=== PATIENT | male | born 1990 | race Two or more races ===

== ENCOUNTER 2020-02-16 08:15 | Day surgery (SDC) | payer MEDICARE, MEDICAID, SELFPAY ==
--- NOTE | 2020-02-15 10:07 | P.CONAN_ITS ---
Documented by User: Ashley Figueroa 02/15/20 10:08 HPI - Anesthesia Eval Consult details Narrative: 29yo M for Colonoscopy [facility] Past Medical History Medical History Allergies Anxiety Asthma HTN (hypertension) Hx of urinary frequency Migraine SVT (supraventricular tachycardia) Thyroid disease Surgical History Surgical History Hx of tonsillectomy Social History Social History Smoking Status: Smoker, status unknown Use of substances other than those prescribed or required for medical reasons: No Have you been hit, kicked, punched, or otherwise hurt by someone within the past year? If so, by whom?: No Advance Directives: No Advance Directives Information Provided: No Meds Allergies Allergy/AdvReac Type Severity Reaction Status Date / Time No Known Allergies Allergy Verified 01/22/20 10:51 Home Medications Medication Instructions Recorded Confirmed Type albuterol sulfate [Ventolin HFA] 2 puff PO Q4H PRN 01/22/20 01/22/20 History alprazolam 1 tab PO BID 01/22/20 01/22/20 History cetirizine 1 tab PO BID 01/22/20 01/22/20 History cholecalciferol (vitamin D3) 1 tab PO DAILY 01/22/20 01/22/20 History citalopram 1 tab PO DAILY 01/22/20 01/22/20 History ibuprofen 01/22/20 01/22/20 History lactulose 15 ml PO DAILY 01/22/20 01/22/20 History levothyroxine 1 tab PO QAM 01/22/20 01/22/20 History lisinopril 1 tab PO DAILY 01/22/20 01/22/20 History montelukast 1 tab PO BEDTIME 01/22/20 01/22/20 History ywnezbzk-xbk-oztcu-vit K-lycop tab PO 01/22/20 History [One-A-Day Men's Multivitamin] oxybutynin chloride 1 tab PO DAILY 01/22/20 01/22/20 History verapamil 1 tab PO DAILY 01/22/20 01/22/20 History Exam Exam Date and Time: February 15, 2020 1007 Pertinent Lab Results Pertinent Lab Results: Laboratory Tests 11/25/19 11/25/19 09:37 09:37 WBC 8.7 Hgb 14.6 Hct 43.4 Plt Count 275 Sodium 140 Potassium 4.0 Chloride 104 BUN 14 Creatinine 1.12 Assessment and Plan Assessment Anesthesia Assessment: Chart Reviewed Documented by User: Bobby Tam MD 02/16/20 08:48 PMFSH Past Medical History Medical History Allergies Anxiety Asthma HTN (hypertension) Hx of urinary frequency Migraine SVT (supraventricular tachycardia) Thyroid disease Surgical History Surgical History Hx of tonsillectomy Social History Social History Smoking Status: Smoker, status unknown Use of substances other than those prescribed or required for medical reasons: No Have you been hit, kicked, punched, or otherwise hurt by someone within the past year? If so, by whom?: No Advance Directives: No Advance Directives Information Provided: No Meds Allergies Allergy/AdvReac Type Severity Reaction Status Date / Time No Known Allergies Allergy Verified 01/22/20 10:51 Home Medications Medication Instructions Recorded Confirmed Type albuterol sulfate [Ventolin HFA] 2 puff PO Q4H PRN 01/22/20 01/22/20 History alprazolam 1 tab PO BID 01/22/20 01/22/20 History cetirizine 1 tab PO BID 01/22/20 01/22/20 History cholecalciferol (vitamin D3) 1 tab PO DAILY 01/22/20 01/22/20 History citalopram 1 tab PO DAILY 01/22/20 01/22/20 History ibuprofen 01/22/20 01/22/20 History lactulose 15 ml PO DAILY 01/22/20 01/22/20 History levothyroxine 1 tab PO QAM 01/22/20 01/22/20 History lisinopril 1 tab PO DAILY 01/22/20 01/22/20 History montelukast 1 tab PO BEDTIME 01/22/20 01/22/20 History lgclxbpg-bsj-uzmzv-vit K-lycop tab PO 01/22/20 History [One-A-Day Men's Multivitamin] oxybutynin chloride 1 tab PO DAILY 01/22/20 01/22/20 History verapamil 1 tab PO DAILY 01/22/20 01/22/20 History Exam Airway Mallampati Class: II TM Dist: >3cm Neck ROM: Full Loose/Missing/Broken Teeth: No Heart: rrr, tachycardia Lungs: nl Other: ao Assessment and Plan Assessment Anesthesia Assessment: Anesthesia Plan Discussed and Chart Reviewed Final Anesthetic Review NPO: Yes ASA Class: III Final Preanesthetic Review: No Changes in Pt Med Stat, Meds/Allgs Chart Reviewed, Consent Obtained/Reviewed and Anes Risks/Benef Reviewed Patient Risk: High Procedure Risk: Low Anesthetic Plan Anesthetic Plan: MAC: Disposition: Standard PACU
[2020-02-15 15:00] VITALS: BMI 43.6
[2020-02-16 08:29] VITALS: BP 139/85; PULSE 116; RESP 18; TEMP 36.2; O2SAT 96
[2020-02-16] MEDS: Lactated Ringers 1,000 ML 100 ML IVCONT (08:39)
--- NOTE | 2020-02-16 08:51 | MHC.SHP ---
Pre-Procedural Eval Section B Chief Complaint: Change in bowel habits Details of Present Illness: see h&P no changes Relevant Family History (Specify if Yes): No Relevant Social History: None Present Medications: None Medical History: No relevant PMH History of Previous Operations: No relevant previous surgery Allergies: Allergies Allergy/AdvReac Type Severity Reaction Status Date / Time No Known Allergies Allergy Verified 01/22/20 10:51 Review of Systems Sugical H&P ROS: Negative: Constitution, Cardiovascular, Respiratory, Neurological, Psychiatric, Hem-Onc, Allergic/Immunologic, Gastrointestinal, Genitourinary, Musculoskeletal, Integumentary, Endocrine and Eyes/Ears/Nose/Throat Exam Surgical H&P Exam: Normal: HEENT, Normal: Heart, Normal: Lungs, Normal: Extremities, Normal: Abdomen, Normal: Skin and Normal: Neurological Plan Diagnosis/Plan: Unchanged Patient has been examined and remains a candidate for the planned procedure
[2020-02-16 09:20] VITALS: BP 126/80; PULSE 94; RESP 15; TEMP 36.3; O2SAT 98
--- NOTE | 2020-02-16 09:23 | PM.OP ---
Brief Operative Note Date of Service: 02/16/20 Pre-op diagnosis: change in bowels Post-op diagnosis: same (normal) Procedure: colonoscopy Surgeon: James Valladares Anesthesia: MAC Estimated blood loss (mL): 2 Pathology: other (sigmoid biopsies) Condition: stable Disposition: PACU
[2020-02-16 09:35] VITALS: BP 112/82; PULSE 86; RESP 16; TEMP 36.3; O2SAT 97
--- NOTE | 2020-02-16 09:42 | OP_ITS ---
SURGEON: James Valladares MD INDICATIONS: Change in bowel habits. PREOPERATIVE DIAGNOSIS: POSTOPERATIVE DIAGNOSIS: PROCEDURE PERFORMED: Colonoscopy to the terminal ileum with biopsy. ESTIMATED BLOOD LOSS: COMPLICATIONS: ANESTHESIA: Monitored anesthesia care. ASSISTANTS: SPECIMENS: DESCRIPTION OF PROCEDURE: History and physical performed. The risks and benefits of the procedure were explained to the patient. Informed consent was obtained. The patient was placed in the left lateral decubitus position. The Olympus video colonoscope was introduced into the rectum. After digital rectal exam was performed, it was found to be normal. The scope was advanced to the cecum without difficulty. The cecum was identified by transillumination, palpation, and identification of ileocecal valve. Examination was performed. The scope was removed. He tolerated the procedure well, was returned to recovery area in stable condition. FINDINGS: The terminal ileum consistent with nodular lymphoid hyperplasia. There was no evidence of Crohn disease. The visualized colonic mucosa was within normal limits. The quality of the prep was good. No polyps were identified. Retroflexed examination showed small internal hemorrhoids. Random sigmoid biopsies were obtained. IMPRESSION: Normal colonoscopy. RECOMMENDATION: 1. Follow up as needed. 2. Repeat colonoscopy could be considered by age 50 for colorectal cancer screening. MD ROGER Reed/RUBEN / [id number]
--- NOTE | 2020-02-16 13:26 | HO.POSTANES ---
Post Anesthesia Evaluation Post Anesthesia Evaluation Vital Signs: Vital Signs Temp Pulse Resp BP Pulse Ox 02/16/20 09:35 97.3 F 86 16 112/82 97 02/16/20 09:20 97.3 F 94 15 126/80 98 02/16/20 08:29 97.1 F 116 H 18 139/85 96 Anesthesia: Monitored Mental Status: Awake Pain Control: Satisfactory Nausea/Vomiting: None Hydration: Adequate Anesthesia-Related Issues: No Anes. Related Issues
== END 2020-02-16 10:16 | disposition home or self-care (01) ==
PROVIDERS: PCP Internal Medicine; Visit Provider Internal Medicine Gastroenterology
PROC: 0DJD8ZZ Inspection of Lower Intestinal Tract, Via Natural or Artificial Opening Endoscopic (ICD-10-PCS; CPT 45378; principal; 2020-02-16 09:00)
DX: R19.4 Change in bowel habit (principal); I10 Essential (primary) hypertension; Z79.899 Other long term (current) drug therapy
CPT/HCPCS: 45380; 88305

== ENCOUNTER → 2021-03-09 14:36 | Outpatient (REF) | payer MEDICARE, MEDICAID, SELFPAY ==
--- NOTE | 2021-03-09 14:47 | ECG_ITS ---
Test Reason : I47.1 Blood Pressure : / mmHG Vent. Rate : 069 BPM Atrial Rate : 069 BPM P-R Int : 154 ms QRS Dur : 100 ms QT Int : 352 ms P-R-T Axes : 047 -20 021 degrees QTc Int : 377 ms Normal sinus rhythm with sinus arrhythmia Incomplete right bundle branch block Minimal voltage criteria for LVH, may be normal variant ( R in aVL ) Borderline ECG No previous ECGs available Referred By: Racheal Manjarrez Electronically Signed By:BRYCE BAEZ MD
== END ==
LOC: HO.CARD 14:36
PROVIDERS: PCP Internal Medicine; Visit Provider Internal Medicine
DX: I47.1 Supraventricular tachycardia (principal)
CPT/HCPCS: 93005

== ENCOUNTER → 2021-03-20 11:19 | Outpatient (REF) | payer MEDICARE, SELFPAY ==
--- NOTE | 2021-03-20 11:27 | HM_ITS ---
Total monitoring time 6 days in 23 hours. Underlying rhythm is sinus. Average 77/Min. No atrial fibrillation or flutter or AV blocks or pauses. Rare ventricular ectopy with minimal burden. NSVT noted, 2 episodes, longest 11 beats, rate 91/min. No clear patient symptoms documented. MTDD
== END ==
LOC: HO.CARD 11:19
PROVIDERS: PCP Internal Medicine; Visit Provider Internal Medicine
DX: I47.1 Supraventricular tachycardia (principal)
CPT/HCPCS: 93242

== ENCOUNTER 2021-09-19 10:58 | Outpatient (REF) | payer MEDICARE, SELFPAY ==
[2021-09-19 13:33] LABS: MANUAL DIFF FLAG NO
[2021-09-19 13:49] LABS: Basophils Absolute Auto 0.1 X10*3/uL (0.0-0.2); Basophils Percent Auto 1.3 % (0-2); Eosinophils Absolute Auto 0.2 X10*3/uL (0.0-0.4); Eosinophils Percent Auto 2.5 % (0-4); Hematocrit 44.3 % (42.0-52.0); Hemoglobin 14.3 g/dl (14.0-18.0); Imm Gran Abs Auto 0.02 X10*3/uL (0.00-0.03); Imm Gran Pct Auto 0.3 % (0.0-0.4); Lymphocytes Absolute Auto 2.7 X10*3/uL (1.2-4.9); Lymphocytes Percent Auto 40.1 % (20-40); Mean Corpuscular HGB Conc 32.3 g/dl (31.0-36.0); Mean Corpuscular Hemoglobin 27.6 pg (27.0-33.0); Mean Corpuscular Volume 85.4 fL (80.0-98.0); Mean Platelet Volume 12.6 fL (9.4-12.4); Monocytes Absolute Auto 0.5 X10*3/uL (0.1-1.2); Monocytes Percent Auto 7.2 % (2-11); Neutrophils Absolute Auto 3.3 x10*3/uL (2.0-8.3); Neutrophils Percent Auto 48.6 % (45-73); Platelet Count 249 X10*3/uL (160-400); Red Blood Count 5.19 X10*6/uL (4.60-5.80); Red Cell Distribution Width 12.1 % (11.0-16.0); White Blood Count 6.8 X10*3/uL (4.8-10.8)
[2021-09-19 14:13] LABS: Alanine Aminotransferase 29 U/L (0-40); Albumin Level 4.8 g/dL (3.5-5.0); Alkaline Phosphatase 52 U/L (39-117); Anion Gap 13 (12-20); Aspartate Amino Transferase 22 U/L (5-37); Bilirubin Total 0.5 mg/dL (0.0-1.0); Blood Urea Nitrogen 20 mg/dL (9-16); Calcium 9.9 mg/dL (8.4-10.2); Carbon Dioxide 27 mmol/L (22-29); Chloride 106 mmol/L (96-108); Cholesterol 200 mg/dL; Estimated Glomerular Filt Rate > 60; Glucose Fasting 105 mg/dL (60-99); HDL Cholesterol 39 mg/dL; LDL Cholesterol Calculated 111 mg/dl; Potassium 4.7 mmol/L (3.3-5.1); Sodium 141 mmol/L (135-145); Total Protein 7.1 g/dL (6.5-8.0); Triglycerides 252 mg/dL
[2021-09-19 14:38] LABS: Free T4 (Free Thyroxine) 1.09 ng/dL (0.71-1.85); Thyroid Stimulating Hormone 5.37 uIU/mL (0.32-4.0); Vitamin D 25-OH Total 20.1 ng/mL (>30)
== END 2021-09-19 10:59 | disposition home or self-care (01) ==
LOC: HO.10HDL 10:58
PROVIDERS: Visit Provider Internal Medicine
DX: E78.5 Hyperlipidemia, unspecified (principal); I10 Essential (primary) hypertension; T78.40XA Allergy, unspecified, initial encounter; E55.9 Vitamin D deficiency, unspecified; E07.9 Disorder of thyroid, unspecified
CPT/HCPCS: 36415; 80053; 80061; 82306; 84439; 84443; 85025

== ENCOUNTER 2022-05-24 15:11 | Outpatient (REF) | payer MEDICARE, SELFPAY ==
--- NOTE | ~2022-05-24 | XR_ITS ---
EXAMINATION: XR SHOULDER, RIGHT CLINICAL INFORMATION: Reason for Exam M25.511 - Pain in right shoulder COMPARISON: None TECHNIQUE: Four views of the shoulder. FINDINGS: No acute fracture or dislocation. Joint spaces are maintained without significant degenerative change. Soft tissues are unremarkable. XR/XR shoulder RT min 2V IMPRESSION: * No acute osseous abnormality.
== END 2022-05-24 15:12 | disposition home or self-care (01) ==
LOC: HO.XRAY 15:11
PROVIDERS: PCP Internal Medicine; Visit Provider Internal Medicine
DX: M25.511 Pain in right shoulder (principal)
CPT/HCPCS: 73030

== ENCOUNTER 2023-09-16 15:33 | Outpatient (AMB) | payer MEDICARE, SELFPAY ==
--- NOTE | 2023-09-16 15:43 | MHC.PC.OV ---
Vital Signs 09/16/23 15:44 Height 5 ft 11 in Weight 313 lb BMI 43.6 BP 130/90 H Blood Pressure Location Lt brachial Position Sitting Intake Visit Reasons: migraine,thyroid [employer] Required: No Accompanied by: Self / Same As Patient Allergies No Known Allergies Allergy (Verified 09/16/23 15:54) Medication List - Last Reconciled 09/16/23 by Racheal Manjarrez MD albuterol sulfate 90 mcg/actuation (Ventolin HFA) 2 puffs PO Q4H PRN 30 days alprazolam 2 mg PO BID PRN 28 days blood pressure monitor As directed cetirizine 10 mg PO BID 30 days cholecalciferol (vitamin D3) 2,000 units PO DAILY 90 days citalopram 40 mg PO DAILY 90 days fluticasone propionate 50 mcg/actuation (Children's Flonase Allergy Relief) 1 spray intranasal DAILY 30 days [ibuprofen ] levothyroxine 75 mcg PO DAILY 90 days lisinopril 10 mg PO DAILY 90 days montelukast 10 mg PO QPM 90 days ficqahyl-cfr-mcbta-vit K-lycop 400-20-300 mcg (One-A-Day Men's Multivitamin) tabs PO ondansetron 8 mg PO Q12H PRN 7 days oxybutynin chloride ER 10 mg PO DAILY 90 days rizatriptan 10 mg PO Q2-4H PRN 30 days verapamil ER 180 mg PO DAILY 90 days Tobacco use date assessed: 09/16/23 Dental Screening Dental Screen Date: 09/16/23 Did you have a dental visit in the last 12 months?: No Did you have a dental problem in the last 6 months where you did not have access to dental care?: No Was dental information given to patient?: Patient has dentist HPI HPI Comments History of Present Illness Details This is a 33-year-old male with supraventricular tachycardia, morbid obesity and mild major depression that comes today for his physical exam. No acute complaints. Tachycardia stable with verapamil. Depression well control with citalopram and follow-up visit requested. He is morbidly obese with a BMI of 43.7 and was advised to do diet and exercise to reach BMI goal less than 30. [facility] Medical History (Updated 09/16/23 @ 16:21 by Racheal Manjarrez MD) Left knee pain Thyroid disease Migraine Hx of urinary frequency Allergies Anxiety Asthma HTN (hypertension) SVT (supraventricular tachycardia) Surgical History Hx of tonsillectomy Family History Father Melanoma Mother Asthma Hypertension Maternal Grandmother Hypertension Maternal Grandfather Diabetes Paternal Grandmother Family history of thyroid problem Maternal Aunt Cancer Paternal Uncle No problems noted. Family/Other Mental health disorder Social History Housing: House Alcohol intake: never Patient Tobacco Use Status: Never used Tobacco e-Cigarette/Vaping Use: Never Used Second Hand Smoke Exposure: No service: No Current occupational status: disabled Cognitive needs: No Hearing needs: No Vision needs: Yes Questionnaire PHQ-9 Over the last 2 weeks, how often have you been bothered by any of the following problems? 1. Little interest or pleasure in doing things: several days 2. Feeling down, depressed, or hopeless: several days 3. Trouble falling or staying asleep, or sleeping too much: several days 4. Feeling tired or having little energy: several days 5. Poor appetite or overeating: several days 6. Feeling bad about yourself - or that you are a failure or have let yourself or your family down: not at all 7. Trouble concentrating on things, such as reading the newspaper or watching television: not at all 8. Moving or speaking so slowly that other people could have noticed. Or the opposite - being so fidgety or restless that you have been moving around a lot more than usual: not at all 9. Thoughts that you would be better off or of hurting yourself in some way: not at all Total score: 5 Depression Screening Interpretation: Positive Depression Screening Follow-up: Existing condition and Follow-up Visit Requested Depression Screening Done: Yes 71722 - PHQ-9 Billing: Yes Source: Developed by Drs. Claudy Fisher, Gemini Jovel, Silverio Knight and colleagues, with an educational charles from [employer]. Thrive Questionnaire Date Thrive assessed: 09/16/23 I am a: Patient What is your living situation today?: I have a steady place to live Within the past 12 months, did the food you bought not last and you didn't have the money to get more?: Never true Within the past 12 months, did you worry whether your food would run out before you got money to buy more?: Never true Do you have trouble paying for medicines?: No Do you have trouble getting transportation to medical appointments?: No Do you have trouble paying your heating and electricity bill?: No Do you have trouble taking care of your child, family member or friend?: No Do you have trouble with day-to-day activities such as bathing, preparing meals, shopping, managing finances, etc.?: No Are you currently unemployed and looking for a job?: No Are you interested in more education?: No Please select the resources that you would like help with: None Currently or been in a relationship where the following occur: no concerns reported THRIVE Score: 0 AUDIT C Alcohol Use Questionnaire (AUDIT-C) 1. How often do you have a drink containing alcohol?: Never Total Score: 0 DACIA-7 AMB Questionnaire DACIA-7 Date DACIA - 7 assessed: 09/16/23 Feeling nervous, anxious, or on edge: 1 = Several days Not being able to stop or control worryin = Not at all Worrying too much about different things: 0 = Not at all Trouble relaxin = Several days Being so restless that it is hard to sit still: 0 = Not at all Becoming easily annoyed or irritable: 0 = Not at all Feeling afraid as if something awful might happen: 1 = Several days Total DACIA-7 score (0-4 normal; 5-9 mild; 10-14 moderate; 15-21 severe): 3 Source: Developed by Drs. Claudy Fisher, Gemini Jovel, Silverio Knight and colleagues, with an educational charles from [employer]. DACIA-7 Assessment Billing DACIA-7 Assessment Tool: DACIA-7 Assessment 66622 Review of Systems Const All systems reviewed & are unremarkable except as noted in HPI and below Card Denies chest pain at rest, Denies chest pain with activity, Denies edema, Denies irregular heart rhythm, Denies claudication, Denies dyspnea, Denies dyspnea on exertion, Denies orthopnea, Denies paroxysmal nocturnal dyspnea and Denies slow heart rate Resp Denies cough, Denies dyspnea and Denies dyspnea on exertion GI Denies abdominal pain, Denies change in bowel habits, Denies excessive flatus, Denies nausea and Denies vomiting Neuro Denies lack of coordination Physical exam (Primary Care) Vital Signs: Last Vital Signs BP 130/90 H 09/16/23 15:44 BMI result Body Mass Index 43.6 Tobacco/Smoking Status: Tobacco use Status Tobacco use date assessed 09/16/23 09/16/23 15:50 Patient Tobacco Use Status Never used Tobacco 09/16/23 15:44 e-Cigarette/Vaping Use Never Used 09/16/23 15:44 PHQ-9: PHQ-9 Score PHQ-9: Total score 5 09/16/23 15:58 Depression Screening Interpretation: Positive Depression Screening Follow-up: Existing condition and Follow-up Visit Requested Thrive Assessment: Date of Thrive Assessment Date Thrive assessed 09/16/23 09/16/23 15:50 Currently or been in a relationship where the following occur: no concerns reported Const Orientation/consciousness: patient oriented x3 [facility] Head: Yes normal to inspection, Yes normocephalic and Yes atraumatic Ears: external ears normal Eyes General: appearance normal, both eyes and all related structures Eyelids: Yes eyelids normal Conjunctivae: conjunctivae normal Neck Neck: Yes normal visual inspection and Yes supple Resp Effort & Inspection: normal respiratory effort Auscultation: clear to auscultation bilaterally Cardio Jugular venous distension: no JVD Rate: regular rate Rhythm: regular rhythm Heart sounds: S1 normal heart sound present and S2 normal heart sound present GI Inspection: Yes normal to inspection Palpation (GI): Soft to palpation and nontender Auscultation: normal bowel sounds Skin General skin exam: no rashes or lesions noted Neuro General: patient oriented x3 and no focal motor deficits Extrem General: Yes full ROM Psych Appearance: grossly normal Assessment and Plan Assessment & Plan (1) Physical exam: Code(s): Z00.00 - Encounter for general adult medical examination without abnormal findings Plan: Repeat in a year. (2) Mild major depression: Code(s): F32.0 - Major depressive disorder, single episode, mild Plan: Continue citalopram. Follow-up visit requested. (3) Morbid obesity: Code(s): E66.01 - Morbid (severe) obesity due to excess calories Plan: Start diet and exercise. BMI goal is less than 30. (4) SVT (supraventricular tachycardia): Code(s): I47.1 - Supraventricular tachycardia Plan: Continue verapamil. Orders: Orders Thyroid Stimulating Hormone Today E03.9 - Hypothyroidism, unspecified Lipid Panel Today E66.01 - Morbid (severe) obesity due to excess calories Vitamin D 25-OH Total Today E55.9 - Vitamin D deficiency, unspecified Comprehensive [place]. Panel Fast Today E66.01 - Morbid (severe) obesity due to excess calories Medications: Refilled alprazolam 2 mg PO BID PRN 56 tabs 0RF anxiety 28 days ondansetron 8 mg PO Q12H PRN 14 tabs 0RF nausea and vomiting 7 days rizatriptan do not exceed 3 doses per 24 hrs 10 mg PO Q2-4H PRN 5 tabs 0RF migraine headache 30 days lisinopril 10 mg PO DAILY 90 tabs 1RF 90 days cholecalciferol (vitamin D3) 2,000 units PO DAILY 90 tabs 3RF 90 days verapamil ER 180 mg PO DAILY 90 caps 0RF 90 days I47.1 - Supraventricular tachycardia citalopram 40 mg PO DAILY 90 tabs 1RF 90 days cetirizine 10 mg PO BID 60 tabs 6RF 30 days Coding Level of Care Code Est Pt Prev Care [id number]([id number]) Diagnoses Physical exam Z00.00 Mild major depression F32.0 Morbid obesity E66.01 SVT (supraventricular tachycardia) I47.1 Additional Codes DACIA-7 Assessment Billing - DACIA-7 Assessment Tool: DACIA-7 Assessment 34183 ([id number]) Time Spent (min) 32
[2023-09-16 15:44] VITALS: BP 130/90; BMI 43.6
== END 2023-09-16 16:09 | disposition home or self-care (01) ==
PROVIDERS: PCP Internal Medicine; Visit Provider Internal Medicine
DX: Z00.00 Encounter for general adult medical examination without abnormal findings (principal); I47.10 Supraventricular tachycardia, unspecified; F33.0 Major depressive disorder, recurrent, mild; E55.9 Vitamin D deficiency, unspecified
CPT/HCPCS: 96127; 99395

== ENCOUNTER 2024-03-23 14:50 | Outpatient (AMB) | payer MEDICARE, SELFPAY ==
[2024-03-23 14:51] VITALS: BP 140/90; BMI 42.4
--- NOTE | 2024-03-23 14:51 | MHC.PC.OV ---
Vital Signs 03/23/24 14:51 Height 5 ft 11 in Weight 304 lb BMI 42.4 BP 140/90 H Blood Pressure Location Lt brachial Position Sitting Intake Visit Reasons: thyroid, depression, weight Operating Room Specialist Required: No Accompanied by: Mother Allergies No Known Allergies Allergy (Verified 03/23/24 15:03) Medication List - Last Reconciled 03/23/24 by Racheal Manjarrez MD acetaminophen-codeine 300-15 mg 1 tab PO Q8H PRN 30 days albuterol sulfate 90 mcg/actuation (Ventolin HFA) 2 puffs PO Q4H PRN 30 days alprazolam 2 mg PO BID PRN 28 days blood pressure monitor As directed cetirizine 10 mg PO BID 30 days cholecalciferol (vitamin D3) 2,000 units PO DAILY 90 days citalopram 40 mg PO DAILY 90 days fluticasone propionate 50 mcg/actuation (Children's Flonase Allergy Relief) 1 spray intranasal DAILY 30 days [ibuprofen ] levothyroxine 75 mcg PO DAILY 90 days lisinopril 10 mg PO DAILY 90 days montelukast 10 mg PO QPM 90 days [id number]-uxy-ufxhl-vit K-lycop 400-20-300 mcg (One-A-Day Men's Multivitamin) tabs PO nebulizers (AeroEclipse II Nebulizer) As directed ondansetron 8 mg PO Q12H PRN 7 days oxybutynin chloride ER 10 mg PO DAILY 90 days rizatriptan 10 mg PO Q2-4H PRN 30 days verapamil ER 180 mg PO DAILY 90 days Tobacco use date assessed: 09/16/23 Dental Screening Dental Screen Date: 09/16/23 HPI HPI Comments History of Present Illness Details The patient is a 33-year-old male presenting with migraines and hand pain. The migraines have been occurring daily and are described as very strong. These episodes seem to worsen with stress and upper respiratory infections, which the patient recently experienced, characterized by persistent coughing. The patient reports that his migraines tend to exacerbate when he is sick. He has been prescribed Verapamil to manage both migraines and blood pressure. Additionally, the patient reports hand pain, particularly affecting the left second finger. He notes some improvement in the pain but remains uncertain about its progression. The patient has a history of hypercholesterolemia, which was noted to be slightly elevated. This condition is monitored without current pharmacological intervention, with plans to re-evaluate in September. Furthermore, the patient experiences anxiety for which Alprazolam is taken as needed. He reports a recent illness with an upper respiratory infection leading to more severe headaches during that period. [facility] Medical History (Updated 03/23/24 @ 20:41 by Racheal Manjarrez MD) Left knee pain Thyroid disease Migraine Hx of urinary frequency Allergies Anxiety Asthma HTN (hypertension) SVT (supraventricular tachycardia) Surgical History Hx of tonsillectomy Family History Father Melanoma Mother Asthma Hypertension Maternal Grandmother Hypertension Maternal Grandfather Diabetes Paternal Grandmother Family history of thyroid problem Maternal Aunt Cancer Paternal Uncle No problems noted. Family/Other Mental health disorder Social History Housing: House Alcohol intake: never Patient Tobacco Use Status: Never used Tobacco e-Cigarette/Vaping Use: Never Used Second Hand Smoke Exposure: No service: No Current occupational status: disabled Cognitive needs: No Hearing needs: No Vision needs: Yes Questionnaire Thrive Questionnaire Date Thrive assessed: 09/16/23 DACIA-7 AMB Questionnaire DACIA-7 Date DACIA - 7 assessed: 09/16/23 Source: Developed by Drs. Claudy Fisher, Gemini Jovel, Silverio Knight and colleagues, with an educational charles from [employer] Review of Systems Const Details: - Respiratory: Reports frequent coughing. - Neurological: Reports ocasional migraines. Physical exam (Primary Care) Vital Signs: Last Vital Signs BP 140/90 H 03/23/24 14:51 BMI result Body Mass Index 42.4 BMI Assessment/Plan discussion: High BMI High, discussed plan: lifestyle, weight reduction, dietary and physical activity Tobacco/Smoking Status: Tobacco use Status Tobacco use date assessed 09/16/23 03/23/24 15:00 Patient Tobacco Use Status Never used Tobacco 03/23/24 15:00 e-Cigarette/Vaping Use Never Used 03/23/24 15:00 Thrive Assessment: Date of Thrive Assessment Date Thrive assessed 09/16/23 03/23/24 15:00 Const Other: General: No confusion Orientation/Consciousness: Patient oriented x3 and No confusion Respiratory: Normal respiratory effort, clear to auscultation bilaterally, no wheezing Cardiovascular: No jugular venous distension, regular rate, regular rhythm, S1 normal heart sound present and S2 normal heart sound present Neurology: Patient oriented x3, no focal motor deficits and No confusion Extremities: Full ROM Office Procedures Flu Questionnaire Does the patient have a severe egg allergy?: No Immunizations Fluarix Triv 6569-2630 (PF) 45 mcg (15 mcg x 3)/0.5 mL IM syringe Performing Provider: Racheal Manjarrez MD [facility] Documented (not given) by: MANOLO Dobson on 03/23/24 15:21 Reason Not Given: Patient Refused Coding Level of Care Code Est Pt Level 4 (22338) Complex EM visit Add On G2211 Diagnoses Mild major depression F32.0 Morbid obesity E66.01 Primary hypertension I10 Hypertension type: primary hypertension Migraine G43.909 Migraine type: chronic migraine (15 or more days per month) without aura Thyroid disease E07.9 Time Spent (min) 24 Assessment & Plan Assessment & Plan (1) Mild major depression: Code(s): F32.0 - Major depressive disorder, single episode, mild Category: Medical (2) Morbid obesity: Code(s): E66.01 - Morbid (severe) obesity due to excess calories Category: Medical (3) HTN (hypertension): Code(s): I10 - Essential (primary) hypertension Category: Medical Qualifiers: Hypertension type: primary hypertension Qualified Code(s): I10 - Essential (primary) hypertension (4) Migraine: Code(s): G43.909 - Migraine, unspecified, not intractable, without status migrainosus Category: Medical Qualifiers: Migraine type: chronic migraine (15 or more days per month) without aura (5) Thyroid disease: Code(s): E07.9 - Disorder of thyroid, unspecified Category: Medical Plan - Continue monitoring of Verapamil efficacy for migraine and blood pressure management. - Re-evaluate cholesterol levels in September. No medication required currently. - Encourage follow-up if migraines persist or worsen despite current treatment. - Monitor hand pain; consider further evaluation if no improvement. Patient was informed and verbally consented to the use of an ambient scribe for clinic note documentation during this visit. During the visit, I discussed with the patient the importance of continuing Verapamil to manage his migraines and blood pressure. We acknowledged the improvement of hand pain and agreed to monitor symptoms. We also reviewed his cholesterol levels; medication is not needed at this point, but re-evaluation in September is planned. The discussion included advising him of the benefits and risks of his current prescription for anxiety, and I emphasized the importance of maintaining routine follow-ups to manage these conditions effectively. I ensured the patient understood that Verapamil should help with both migraines and blood pressure control, and I invited him to communicate any changes in symptoms. Orders: Orders Lipid Panel 6 Months E78.5 - Hyperlipidemia, unspecified Comprehensive [place]. Panel Fast 6 Months I47.1 - Supraventricular tachycardia Influenza 4750-5330 Immunization Today Z23 - Encounter for immunization Thyroid Stimulating Hormone 6 Months E03.9 - Hypothyroidism, unspecified Medications: New oxybutynin chloride ER 15 mg PO DAILY 90 tabs 1RF 90 days Refilled alprazolam 2 mg PO BID PRN 56 tabs 0RF anxiety 28 days verapamil ER 180 mg PO DAILY 90 caps 0RF 90 days I47.1 - Supraventricular tachycardia levothyroxine 75 mcg PO DAILY 90 days 90 tabs 1RF E03.9 - Hypothyroidism, unspecified Patient Instructions: - Continue taking prescribed medications as directed. - Maintain ongoing observation of migraine and hand pain symptoms. - Contact the office if migraines or other symptoms worsen. - Prepare for cholesterol re-evaluation in September. - Follow routine health maintenance guidelines.
== END 2024-03-23 15:14 | disposition home or self-care (01) ==
PROVIDERS: PCP Internal Medicine; Visit Provider Internal Medicine
DX: F32.0 Major depressive disorder, single episode, mild (principal); E66.01 Morbid (severe) obesity due to excess calories; Z68.41 Body mass index [BMI] 40.0-44.9, adult; I10 Essential (primary) hypertension; G43.909 Migraine, unspecified, not intractable, without status migrainosus; E07.9 Disorder of thyroid, unspecified

== ENCOUNTER → 2024-03-23 14:50 | Outpatient (BNVA) | payer MEDICARE, SELFPAY | PROVIDERS: PCP Internal Medicine; Visit Provider Internal Medicine | DX: F32.0 Major depressive disorder, single episode, mild (principal); E66.01 Morbid (severe) obesity due to excess calories; Z68.41 Body mass index [BMI] 40.0-44.9, adult; I10 Essential (primary) hypertension; G43.909 Migraine, unspecified, not intractable, without status migrainosus; E07.9 Disorder of thyroid, unspecified; Z71.3 Dietary counseling and surveillance | CPT/HCPCS: 99212 ==

== ENCOUNTER → 2024-04-29 19:39 | Outpatient (BNV) | payer MEDICARE, SELFPAY | PROVIDERS: PCP Internal Medicine; Visit Provider Radiology Diagnostic Radiology | DX: R59.0 Localized enlarged lymph nodes (principal) | CPT/HCPCS: 70551 ==

== ENCOUNTER 2024-05-18 15:42 | Outpatient (REF) | payer MEDICARE, SELFPAY ==
--- NOTE | ~2024-05-18 | US_ITS ---
CLINICAL HISTORY: R59.0 - Localized enlarged lymph nodes Soft tissue ultrasound of the bilateral neck Comparison: None FINDINGS: Images were obtained in the area of clinical concern. In this region, the soft tissue shows multiple lymph nodes with fatty hilum. The largest one is a left level 4 lymph node 1.9 x 0.5 x 0.7 cm in size. IMPRESSION: Nonspecific bilateral cervical lymph nodes. Clinical follow-up and correlation are recommended. This document has been electronically signed by: Maryann Butts MD on 05/19/2024 16:13:36
--- OUTSIDE RECORDS SUMMARY | 2024-05-18 17:59 | XMS_ITS ---
Author Name [facility] Organization Unknown Problems Problem Status Onset Date Problem Type Date of Resoluti on Source Migraine without status migrainosus, not intractable, unspecified migraine type active EncounterDiagnosisAct [facility]
--- OUTSIDE RECORDS SUMMARY | 2024-05-18 17:59 | XMS_ITS | Clinical Summary ---
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 Name Role Phone Unavailable Primary Care Provider Unavailabl e Social History Tobacco Use Types Packs/Day Years Used Date Smoking Tobacco: Never Assessed Sex and Gender Information Value Date Recorded Sex Assigned at Not on file Gender Identity Not on file Sexual Orientation Not on file Plan of Treatment Health Maintenance Due Date Last Done Comments Hepatitis C Virus Screening 1989 HIV Screening 2002 DTaP/Tdap/Td Vaccines (1 - Tdap) 2008 Hepatitis B Vaccines (1 of 3 - 19+ 3-dose series) 2008 Influenza Vaccine 10/24/2023 COVID-19 Vaccine ( - 2023-2 5 season) 2023 HPV Vaccines Aged Out No longer eligi ble based on patient's age to complete this topic Pneumococcal Vaccine: Pediat christiano (0-5 Years) and At-Risk Patients (6 to 49 Years) Aged Out No longer eligible b ased on patient's age to complete this topic
--- OUTSIDE RECORDS SUMMARY | 2024-05-18 17:59 | XMS_ITS | Patient Health Record ---
Author Organization [facility] Address [address] [place] [id number] Care Team Providers Care Finish Molder Name Role Phone Racheal Nelson Primary Care Provider Unavailab James Stevenson Jr Unavailable [phone] REASON FOR REFERRAL No Information MEDICATIONS Medication SIG (Take, Route, Frequency, Duration) Notes Start Date End Date Status Lactulose Active Verapamil HCl Active Ibuprofen Active Lisinopril Active One A Day Mens VitaCraves Active Vitamin D (Ergocalciferol) Active Levothyroxine Sodium Active Cetirizine HCl Activ e MiraLax (colon prep) 8.3 ounce (238) grams mixed with Gatorade or Crystal Light orally begin at 5:00 p.m. the day before the procedure for 1 day 01/07/2020 Active oxyBUTYnin Chloride ER Active ALPRAZolam Active Citalopram Hydrobromide Active Montelukast Sodium A ctive Ventolin HFA Active IMMUNIZATIONS Vaccine Route Administration Date Status Comme nts Influenza Unknown 01/01/2019 Administered SOCIAL HISTORY Tobacco Use: Social History Observation Description Date Details (start date - stop date) Never Smoker NA - NA Sex Assigned At : Social History Observation Description Sex Assigned At Unknown Tobacco Use/Smoking Question Answer Notes Patient is a nonsmoker Alcohol Screen Question Answer Notes Did you have a drink containing alcohol in the p ast year? No Points 0 Interpretation Negative PLAN OF TREATMENT Future Test Test Name Order Date COLONOSCOPY 01/07/2020 Insurance Providers Payer Name Payer Address Payer Phone Subscriber Number Group Number Insured Name Patient Relationship to Insured Coverage Start Date Coverage End Date MEDICARE OF [place] [address] [place] [id number] ISRA GATICA Self - patient is the insured MEDICAID OF [facility] [address] [place] [phone] [id number] ISRA GATICA Self - patient is the insured MEDICAL (GENERAL) HISTORY Medical History History ICD Code SVT hypertension asthma allergies anxiety urinary frequency migraine headaches thyroid disease Surgical History Surgery Date(Month/Year) tonsillectomy
== END 2024-05-18 15:43 | disposition home or self-care (01) ==
LOC: HO.US 15:42
PROVIDERS: PCP Internal Medicine; Visit Provider Internal Medicine
DX: R59.0 Localized enlarged lymph nodes (principal)
CPT/HCPCS: 76536

== ENCOUNTER → 2024-05-18 15:44 | Outpatient (BNV) | payer MEDICARE, SELFPAY | PROVIDERS: PCP Internal Medicine; Visit Provider Nuclear Medicine | DX: R59.0 Localized enlarged lymph nodes (principal) | CPT/HCPCS: 76536 ==